=== PATIENT | female | born 1980 | race Caucasian/White ===

== ENCOUNTER 2023-06-22 11:32 | Inpatient (IN) | payer BC ==
[2023-06-22] MEDS ORDERED: TRANEXAMIC 1,000 MG/100ML-NACL 1,000 MG in EMPTY BAG 1 BAG IV PRN (17:29)
[2023-06-22] MEDS ORDERED: OXYTOCIN 10 UNIT/ML 1 ML VIAL IM PRN (17:29)
[2023-06-22] MEDS ORDERED: miSOPROStoL 200 MCG TAB PO PRN (17:29)
[2023-06-22] MEDS ORDERED: LIDOCAINE 0.5% (PF) 5 MG/ML (50 ML SDV) SQ PRN (17:29)
[2023-06-22] MEDS ORDERED: METHYLERGONOVINE 0.2 MG/ML 1 ML AMP IM PRN (17:29)
[2023-06-22] MEDS ORDERED: TERBUTALINE 1 MG/ML VIAL SQ PRN (17:29)
[2023-06-22] MEDS ORDERED: CARBOPROST TROMETHAMINE 250 MCG/ML 1 ML AMP IM PRN (17:29)
[2023-06-22] MEDS ORDERED: DINOPROSTONE 10 MG INSERT.ER VAGINAL ONE ×2 (17:30→17:45)
[2023-06-22] MEDS ORDERED: OXYTOCIN 30 UNITS/500 ML NS 30 UNIT in SALINE 1 500ML.BAG IV SCH (17:30)
[2023-06-22 18:19] LABS: Basophils % (A) 0 %; Eosinophils # (A) 0.1 k/uL (0-0.7); Eosinophils % (A) 1 %; HCT 30.7 % (34.0-46.0); HGB 10.9 gm/dL (11.4-16.0); Lymphocytes # (A) 1.7 k/uL (1.0-4.8); Lymphocytes % (A) 19 %; MCH 32.4 pg (25.0-35.0); MCHC 35.5 g/dL (31.0-37.0); MCV 91.1 fL (80.0-100.0); Mean Platelet Volume 10.6; Monocytes # (A) 0.8 k/uL (0-1.0); Monocytes % (A) 9 %; Neutrophils # (A) 6.3 k/uL (1.3-7.7); Neutrophils % (A) 69 %; Platelet Count 171 k/uL (150-450); RBC 3.37 m/uL (3.80-5.40); RDW 13.7 % (11.5-15.5); WBC 9.1 k/uL (3.8-10.6)
[2023-06-22] MEDS: LIOTHYRONINE SODIUM 5 MCG TAB PO SCH (21:23)
[2023-06-22] MEDS: LEVOTHYROXINE 100 MCG TAB PO SCH (21:23)
[2023-06-22] MEDS: NALBUPHINE 10 MG/ML (10 ML MDV) IV PRN (23:47)
[2023-06-23] MEDS: LACTATED RINGERS 1,000 ML IV SCH ×4 (02:40→22:20)
[2023-06-23] MEDS ORDERED: AMPICILLIN 2,000 MG in SODIUM CHLORIDE 0.9% 100 ML IVPB ONE (04:00)
[2023-06-23] MEDS: NALBUPHINE 10 MG/ML (10 ML MDV) IV PRN (04:32)
[2023-06-23] MEDS ORDERED: fentaNYL (PF) 50 MCG/ML 5 ML AMP ONE (07:25)
[2023-06-23] MEDS ORDERED: SODIUM CHLORIDE 0.9% 100 ML BAG ONE (07:25)
[2023-06-23] MEDS ORDERED: ROPIVACAINE 5 MG/ML 20 ML AMPULE ONE (07:25)
[2023-06-23] MEDS: AMPICILLIN 1,000 MG in SODIUM CHLORIDE 0.9% 50 ML IVPB SCH ×4 (08:03→21:03)
[2023-06-23] MEDS: PRENATAL VIT-IRON-FOLIC ACID 1 EACH TABLET PO SCH (09:00)
[2023-06-23] MEDS ORDERED: TRANEXAMIC 1,000 MG/100ML-NACL 1,000 MG in EMPTY BAG 1 BAG IV PRN (16:50)
[2023-06-23] MEDS ORDERED: CARBOPROST TROMETHAMINE 250 MCG/ML 1 ML AMP IM PRN (16:50)
[2023-06-23] MEDS ORDERED: miSOPROStoL 200 MCG TAB PO PRN (16:50)
[2023-06-23] MEDS ORDERED: METHYLERGONOVINE 0.2 MG/ML 1 ML AMP IM PRN (16:50)
[2023-06-23] MEDS ORDERED: OXYTOCIN 30 UNITS/500 ML NS 30 UNIT in SALINE 1 500ML.BAG IV SCH (17:00)
[2023-06-23] MEDS ORDERED: CITRIC ACID-SODIUM CITRATE 15 ML CUP PO ONE (17:00)
[2023-06-23] MEDS ORDERED: MORPHINE SULFATE (PF) 0.3 MG/0.3 ML SYR ONE (17:16)
[2023-06-23] MEDS ORDERED: ONDANSETRON 4 MG/2 ML VIAL ONE (17:16)
[2023-06-23] MEDS ORDERED: NALOXONE 0.4 MG/ML 1 ML VIAL IV PRN ×2 (17:39→18:08)
[2023-06-23] MEDS ORDERED: KETOROLAC 15 MG/ML 1 ML VIAL IVP PRN (17:39)
[2023-06-23] MEDS ORDERED: diphenhydrAMINE 50 MG/ML 1 ML VIAL IVP PRN ×3 (17:39→18:08)
[2023-06-23] MEDS ORDERED: ONDANSETRON 4 MG/2 ML VIAL IVP PRN ×2 (17:39→18:08)
[2023-06-23] MEDS ORDERED: HYDROmorphone 0.5 MG/0.5 ML SYRINGE IVP PRN (17:39)
--- NOTE | 2023-06-23 18:03 | P.OP ---
Date of Procedure: 06/23/23 Preoperative Diagnosis: IUP at 39 weeks, arrest of descent, cervical swelling Postoperative Diagnosis: Same Procedure(s) Performed: Primary low transverse section Anesthesia: epidural Surgeon: Karley Salazar Controls Engineer #1: Aneesh Lynch Estimated Blood Loss (ml): 812 IV fluids (ml): 800 Urine output (ml): 50 Pathology: other (Placenta) Condition: stable Disposition: observation Indications for Procedure: 42-year-old at 39 weeks of that presented last evening for Cervidil induction of labor. Patient receiving routine care with suggestion of large for gestational age . Patient was admitted and Cervidil was placed without difficulty. Patient began gabby overnight and had spontaneous rupture of membranes at 6:15, clear fluid was appreciated. Patient was noted to be 2-3 cm. Patient then requested epidural for pain management. Epidural was placed without difficulty with anesthesia department. Patient made slow progress through the day and has been 8 cm for multiple hours. Discussion with patient and patient's regarding lack of progress and lack of descent into the pelvis was discussed. Recommendation for primary C- section given lack of descent and concern for large for gestational age is reviewed. All questions are answered and patient and agree with plan of care Operative Findings: Viable male infant in occiput posterior presentation delivered at 1729, weight of 8 lbs. 4 oz. Normal uterus tubes and ovaries were appreciated. Description of Procedure: Patient was taken back to the operating suite where epidural anesthesia was found be adequate. She was prepped and draped in normal sterile fashion in the dorsal supine position. A Pfannenstiel skin incision was made the scalpel and carried through fascia. The fascia was incised in the midline and extended laterally. The superior aspect of the fascial incision was then grasped with Harford clamps, elevated and underlying rectus muscles dissected off sharply. The inferior aspect of the fascial incision was then grasped mayelin clamps, elevated and underlying rectus muscles dissected off sharply. The rectus muscles were in the midline the peritoneum was identified and entered. This incision was then incised extended superiorly and inferiorly with good visualization the bladder. The bladder blade was then inserted into the pelvis. The vesicouterine peritoneum was identified and a bladder flap was created using sharp and blunt dissection. The bladder blade was reinserted into the pelvis to keep the bladder away from the operating field. A scalpel is used to make a hysterotomy incision clear fluid was obtained upon entry to the uterus. Infant was noted to be in occiput posterior presentation and delivered in the usual fashion. The umbilical cord was doubly clamped and cut. Spontaneous cry was noted at . The placenta was delivered manually and the uterus was cleared of all clots and debris. The uterine uterus was exteriorized and a extension of the hysterotomy incision was noted on the right side. The hysterotomy incision was closed with 0 Vicryl in a running locked fashion. A second indicating suture was performed. Bleeding was noted on the left-hand side of the uterine incision therefore 2 [id number] sutures were used to obtain hemostasis. The gutters were cleared of all clots and debris and the uterus was returned to the abdomen. Inspection of the hysterotomy incision a small amount of oozing was appreciated therefore Surgicel powder was placed along the hysterotomy incision. Heme stasis was then noted. The peritoneum was then loosely reapproximated. The rectus muscles were inspected and any points of bleeding were made hemostatic with the Bovie. The fascia was then closed with 0 Vicryl in a running fashion from one lateral edge the other. The subcutaneous tissue was irrigated and any points of bleeding were made hemostatic with the Bovie. The subcu tissue was closed with 3-0 Vicryl in a running fashion. Skin was closed with 4-0 Vicryl in a subcuticular fashion. Steri-Strips and sterile dressings were applied. All counts were noted be correct 2 at the end of the delivery. Patient and infant tolerated delivery well and are resting comfortably.
--- NOTE | 2023-06-23 18:04 | P.HPOB ---
History of Present Illness H&P Date: 06/22/23 Chief Complaint: IUP at 39 weeks Slit 42-year-old 2 para 0010 at 39 4/7 weeks that presents for induction of labor. Patient has been measuring large for gestational age. Patient has been receiving routine care which has been essentially uncomplicated besides for size. Patient was noted to be measuring large for gestational age therefore ultrasound was completed. Ultrasound revealing greater than 8 pounds approximately 2 weeks ago. Patient does note good movement and occasional contraction and increasing pelvic pressure. Patient denies loss of fluid or vaginal bleeding upon admission. On bloodwork this patient is a blood type of O+, rubella status immune, hepatitis B surface antigen negative, HIV negative, RPR is nonreactive, group beta strep cultures were positive. Review of Systems Constitutional: Denies chills, Denies fatigue, Denies fever Ears, nose, mouth and throat: Denies headache Cardiovascular: Reports leg edema Respiratory: Denies dyspnea Gastrointestinal: Denies constipation, Denies diarrhea, Denies nausea, Denies vomiting Genitourinary: Reports Past Medical History - Past Family History Mother Family Medical History: Hypertension, Thyroid Disorder Father Family Medical History: Cancer, Hyperlipidemia, Hypertension Medications and Allergies Home Medications Medication Instructions Recorded Confirmed Type Aspirin [Children's Aspirin] 81 mg PO DAILY 06/22/23 06/22/23 History Levothyroxine Sodium [Synthroid] 100 mcg PO HS 06/22/23 06/22/23 History Liothyronine Sodium [Cytomel] 10 mcg PO HS 06/22/23 06/22/23 History Vit No.179/Iron/Folic 1 each PO DAILY 06/22/23 06/22/23 History [ Tablet] Allergies Allergy/AdvReac Type Severity Reaction Status Date / Time No Known Allergies Allergy Verified 06/22/23 17:28 Exam Osteopathic Statement: *. No significant issues noted on an osteopathic structural exam other than those noted in the History and Physical/Consult. Intake and Output 06/22/23 06/22/23 06/22/23 06:59 14:59 22:59 Other: Weight 102.058 kg Targeted physical exam is performed and state in general this a well-nourished well-developed female in no acute distress, breathing is nonlabored, heart has a regular rate and, abdomen is gravid and large for gestational age, on heart tones are noted to be category 1, she is not gabby. On cervical exam Results Result Diagrams: 06/22/23 18:05 Assessment and Plan (1) Term Current Visit: Yes Status: Acute Code(s): Z34.90 - ENCNTR FOR SUPRVSN OF NORMAL , UNSP, UNSP TRIMESTER SNOMED Code(s): 15714077 Plan: 42-year-old 2 para 0010 at 39 4/7 weeks of presents for induction of labor. Patient desires induction as is suspected to be large for gestational age.
[2023-06-23] MEDS ORDERED: diphenhydrAMINE 50 MG CAP PO PRN (18:08)
[2023-06-23] MEDS ORDERED: ZOLPIDEM 5 MG TAB PO PRN (18:08)
[2023-06-23] MEDS ORDERED: diphenhydrAMINE 25 MG CAP PO PRN (18:08)
[2023-06-23] MEDS ORDERED: METOCLOPRAMIDE 5 MG/ML 2 ML VIAL IVP PRN (18:08)
[2023-06-23] MEDS ORDERED: LACTATED RINGERS 1,000 ML IV SCH (18:08)
[2023-06-23] MEDS ORDERED: SIMETHICONE 80 MG CHEWABLE PO PRN (18:08)
[2023-06-23] MEDS: ACETAMINOPHEN IV (For NPO) 1,000 MG in EMPTY BAG 1 BAG IVPB SCH (18:17)
[2023-06-23] MEDS: IBUPROFEN IV 800 MG in SODIUM CHLORIDE 0.9% 250 ML IV SCH (19:28)
[2023-06-23] MEDS: LEVOTHYROXINE 100 MCG TAB PO SCH (21:17)
[2023-06-23] MEDS: SENNOSIDES-DOCUSATE SODIUM 1 EACH TAB PO SCH (21:17)
[2023-06-23] MEDS: LIOTHYRONINE SODIUM 5 MCG TAB PO SCH (21:18)
[2023-06-23] MEDS: ACETAMINOPHEN TAB 500 MG TAB PO SCH (23:27)
[2023-06-24] MEDS: ACETAMINOPHEN TAB 500 MG TAB PO SCH ×4 (00:10→23:54)
[2023-06-24] MEDS: ACETAMINOPHEN IV (For NPO) 1,000 MG in EMPTY BAG 1 BAG IVPB SCH (00:11)
[2023-06-24] MEDS: AMPICILLIN 1,000 MG in SODIUM CHLORIDE 0.9% 50 ML IVPB SCH ×2 (00:12→07:46)
[2023-06-24] MEDS: IBUPROFEN 600 MG TAB PO SCH ×4 (03:54→20:23)
--- NOTE | 2023-06-24 07:11 | P.PN ---
Progress Note - Text Progress Note Date: 06/24/23 Postoperative day 1 status post section under epidural anesthesia, and epidural morphine given for postoperative analgesia, patient doing well, there is no anesthesia related complications, Patient had no headache, vital signs stable , Assessment and plan= postop day 1 status post , doing well there is no anesthesia related complication.
[2023-06-24 07:37] LABS: Basophils % (A) 0 %; Eosinophils % (A) 0 %; HCT 22.6 % (34.0-46.0); Lymphocytes # (A) 1.5 k/uL (1.0-4.8); Lymphocytes % (A) 11 %; MCH 31.8 pg (25.0-35.0); MCHC 34.2 g/dL (31.0-37.0); Mean Platelet Volume 10.5; Monocytes # (A) 0.9 k/uL (0-1.0); Monocytes % (A) 6 %; Neutrophils # (A) 10.7 k/uL (1.3-7.7); Neutrophils % (A) 80 %; Platelet Count 166 k/uL (150-450); RBC 2.43 m/uL (3.80-5.40); RDW 14.5 % (11.5-15.5); WBC 13.4 k/uL (3.8-10.6)
[2023-06-24 07:39] LABS: HGB 7.7 gm/dL (11.4-16.0)
[2023-06-24] MEDS: IBUPROFEN IV 800 MG in SODIUM CHLORIDE 0.9% 250 ML IV SCH (07:47)
[2023-06-24] MEDS: SENNOSIDES-DOCUSATE SODIUM 1 EACH TAB PO SCH ×2 (07:51→20:22)
[2023-06-24 10:02] VITALS: RESP 16
--- NOTE | 2023-06-24 12:06 | P.PNOBGPC ---
Subjective - Subjective Principal diagnosis: Postop day 1, primary Interval history: Patient is doing well postoperatively. She is ambulating without difficulty, she has had a spontaneous void. She denies nausea or vomiting and is tolerating a regular diet. Lochia is moderate. She is breast feeding. Patient reports: Reports appetite normal, Reports voiding normally, Reports pain well controlled, Reports ambulating normally [place]: doing well, nursing well Objective - Vital Signs Latest vital signs: Vital Signs Temp Pulse Resp BP Pulse Ox 06/24/23 10:00 16 99 06/24/23 08:00 98.1 F 84 18 110/73 06/24/23 06:00 16 99 06/24/23 04:00 97.9 F 80 16 101/63 98 06/24/23 02:00 98.3 F 77 16 114/72 100 06/23/23 23:52 98.3 F 83 16 116/75 06/23/23 22:39 100 06/23/23 22:00 98.3 F 81 16 116/75 97 06/23/23 20:39 16 06/23/23 20:05 98.1 F 77 16 124/65 100 06/23/23 19:35 78 16 140/61 100 06/23/23 19:05 82 16 122/78 100 06/23/23 18:50 82 16 122/80 98 06/23/23 18:39 16 100 06/23/23 18:35 92 16 118/75 99 06/23/23 18:20 85 16 106/60 99 06/23/23 18:05 88 16 118/57 100 Intake and Output 06/23/23 06/24/23 06/24/23 22:59 06:59 14:59 Intake Total 2000 480 Output Total 7180 966 1508 Balance 571 -320 -1000 Intake: IV 2000 Oral 480 Output: Urine 005 174 5564 Output, Quantitative 1029 Blood Loss Other: # Voids 1 - Exam Extremities: Present: normal, edema Abdomen: Present: normal appearance, soft Incision: Present: normal, dry, intact Uterus: Present: normal, firm - Labs Labs: Abnormal Lab Results - Last 24 Hours (Table) 06/24/23 Range/Units 06:14 WBC 13.4 H (3.8-10.6) k/uL RBC 2.43 L (3.80-5.40) m/uL Hgb 7.7 L D (11.4-16.0) gm/dL Hct 22.6 L (34.0-46.0) % Neutrophils # 10.7 H (1.3-7.7) k/uL Assessment and Plan (1) Term Current Visit: Yes Status: Acute Code(s): Z34.90 - ENCNTR FOR SUPRVSN OF NORMAL , UNSP, UNSP TRIMESTER SNOMED Code(s): 85221295 (2) Arrest of descent, delivered, current hospitalization Current Visit: Yes Status: Acute Code(s): O62.1 - SECONDARY UTERINE INERTIA SNOMED Code(s): 79129806 (3) Arrest of dilation, delivered, current hospitalization Current Visit: Yes Status: Acute Code(s): O62.1 - SECONDARY UTERINE INERTIA SNOMED Code(s): 51934879 Plan: 42-year-old G2 now P1 011 status post primary . Patient is doing well this morning. We'll encourage increased ambulation. NTD routine postoperative care and anticipate discharge home tomorrow.
[2023-06-24] MEDS: LACTATED RINGERS 1,000 ML IV SCH (22:31)
[2023-06-24] MEDS: LEVOTHYROXINE 100 MCG TAB PO SCH (22:38)
[2023-06-24] MEDS: LIOTHYRONINE SODIUM 5 MCG TAB PO SCH (22:38)
[2023-06-25] MEDS: IBUPROFEN 600 MG TAB PO SCH (02:18)
[2023-06-25] MEDS: IBUPROFEN IV 800 MG in SODIUM CHLORIDE 0.9% 250 ML IV SCH (02:23)
[2023-06-25] MEDS: ACETAMINOPHEN TAB 500 MG TAB PO SCH (05:51)
[2023-06-25] MEDS: PRENATAL VIT-IRON-FOLIC ACID 1 EACH TABLET PO SCH (08:18)
[2023-06-25] MEDS: SENNOSIDES-DOCUSATE SODIUM 1 EACH TAB PO SCH (08:18)
--- NOTE | 2023-06-25 08:34 | P.DS ---
Providers Date of admission: 06/22/23 17:12 Expected date of discharge: 06/25/23 Attending physician: Karley Salazar Primary care physician: Physician Nonstaff - Discharge Diagnosis(es) (1) Term Current Visit: Yes Status: Acute (2) Arrest of descent, delivered, current hospitalization Current Visit: Yes Status: Acute (3) Arrest of dilation, delivered, current hospitalization Current Visit: Yes Status: Acute (4) S/P section Current Visit: Yes Status: Acute Hospital Course: This is a 42-year-old 2 now para 1011 that presented to labor and delivery on 06/22 for Cervidil induction of labor. Patient was noted to be 39- 4/7 weeks at that time. Patient was admitted and Cervidil was placed without difficulty. Patient has been receiving routine care with myself which has been essentially uncomplicated. This was an IVF . For full details on this patient please see the dictated history and physical. Patient was admitted Cervidil was placed, patient did note contractions tonight and spontaneous rupture of membranes happened around 6:15 that morning, clear in nature. Patient was noted to be uncomfortable and requested epidural placement. Epidural was placed without difficulty. Patient made slow progress through labor eventually reaching 8 cm. Patient was noted to have cervical swelling and arrest of descent at that time. Suspect soon for occiput posterior presentation was noted and was discussed. Given arrest of descent and dilation discussion was had regarding delivery on questions were answered with patient and patient's . Patient and her agreed with plan of care and was performed. For full details on the please see the operative report. Patient delivered a viable male at 1729, weight of 8 lbs. 4 oz. Patient's postoperative course has been uneventful. On this postoperative day #2 she is ambulating and voiding without difficulty. She is tolerating a regular diet without nausea or vomiting. She states her pain is well- controlled. She is breast-feeding without difficulty. She notes her lochia is minimal to moderate. Patient Condition at Discharge: Good Plan - Discharge Summary New Discharge Prescriptions: No Action Vit No.179/Iron/Folic [ Tablet] 1 each PO DAILY Levothyroxine Sodium [Synthroid] 100 mcg PO HS Liothyronine Sodium [Cytomel] 10 mcg PO HS Aspirin [Children's Aspirin] 81 mg PO DAILY Discharge Medication List Aspirin [Children's Aspirin] 81 mg PO DAILY 06/22/23 [History] Levothyroxine Sodium [Synthroid] 100 mcg PO HS 06/22/23 [History] Liothyronine Sodium [Cytomel] 10 mcg PO HS 06/22/23 [History] Vit No.179/Iron/Folic [ Tablet] 1 each PO DAILY 06/22/23 [History] Follow up Appointment(s)/Referral(s): Karley Salazar DO [Doctor of Osteopathic Medicine] - 2 Weeks Patient Instructions/Handouts: (DC), (GEN) Activity/Diet/Wound Care/Special Instructions: No tub baths or intercourse until 6 weeks post operatively. [id number] ibuprofen and Tylenol are discussed for pain control. Patient is to call the office to make of routine postoperative appointment at 2 weeks postoperatively. Should patient have any concerns prior to her postop appointment she is urged to call the office and be seen. Discharge Disposition: HOME SELF-CARE
[2023-06-25 09:34] VITALS: BP 128/75; PULSE 82; TEMP 97.6
--- NOTE | 2023-06-30 15:11 | CDI ---
Documentation Clarification Form Date: 06/30/2023 02:10:10 PM From: Alem Belle Admit Date: 06/22/2023 05:12:00 PM Patient Name: Tesha Torres Visit Number: [id number] Discharge Date: 06/25/2023 02:18:00 PM ATTENTION: The Clinical Documentation Specialists (CDI) and [facility] Coding Staff appreciate your assistance in clarifying documentation. Please respond to the clarification below the line at the bottom and electronically sign. The CDI & [facility] Coding staff will review the response and follow-up if needed. Please note: Queries are made part of the Legal Health Record. If you have any questions, please contact the author of this message via ITS. Dr. Karley Salazar Your patient has a hemoglobin/hematocrit level of 10.9 and 30.7 on 06/22/23 and 7.7 and 22.6 on 06/24/23. Please clarify if there is an additional diagnosis and/or clinical significance related to these lab values. History/Risk Factors: patient is a 42 year old gravid 2 para 0010 39 weeks Clinical indicators: patient presented to labor and delivery for induction of labor due to suspected large for gestational age. Currently 39 weeks . Per progress and delivery note patient made slow progress throughout labor. Reached 8cm and experienced cervical swelling with arrest of descent and dilation. Occiput posterior presentation was expected. Elected for Primary Section. Intra-op blood loss: estimated 812ml Postop course uncomplicated Lochia is minimal to moderate Vitals: T: 98.1, Pulse 82, Respirations 16, BP 122/80 Treatment: methylergonovine 0.2 once PRN 06/23/23 Discharge Medication: vitamin, aspirin, synthroid, cytomel Is there an additional diagnosis and/or clinical significance related to the above lab result/information: [ X] Acute blood loss anemia [ ] Acute on chronic blood loss anemia [ ] No additional diagnosis/Not clinically significant [ ] Unable to determine [ ] Other, please specify MTDD
== END 2023-06-25 14:18 | disposition home or self-care (01) | DRG 787 ==
LOC: 4FBP 17:12
PROVIDERS: ADMIT Obstetrics & Gynecology Obstetrics; ATTEND Obstetrics & Gynecology Obstetrics
PROC: 3E0P7VZ Introduction of Hormone into Female Reproductive, Via Natural or Artificial Opening (ICD-10-PCS; 2023-06-23)
PROC: 10D00Z1 Extraction of Products of Conception, Low, Open Approach (ICD-10-PCS; principal; 2023-06-23 17:23)
DX: O36.63X0 Maternal care for excessive fetal growth, third trimester, not applicable or unspecified (principal); D62 Acute posthemorrhagic anemia; O62.0 Primary inadequate contractions; O99.02 Anemia complicating childbirth; O62.1 Secondary uterine inertia; O64.0XX0 Obstructed labor due to incomplete rotation of fetal head, not applicable or unspecified; Z79.82 Long term (current) use of aspirin; Z79.890 Hormone replacement therapy; Z3A.39 39 weeks gestation of pregnancy; Z37.0 Single live birth
CPT/HCPCS: 85025; 86850; 86900; 86901